=== PATIENT | male | born 1970 | race African-American/Black ===

== ENCOUNTER → 2020-08-05 | Outpatient (CLI) | payer OTHER ==
[~2020-08-05] MED LIST: OXYC1TAB23 PO
== END ==
LOC: M LABSMTC 09:44
PROVIDERS: ATTEND Anesthesiology
DX: Z01.812 Encounter for preprocedural laboratory examination (principal); Z20.828 Contact with and (suspected) exposure to other viral communicable diseases
CPT/HCPCS: C9803; U0003

== ENCOUNTER 2020-08-09 11:23 | Day surgery (SDC) | payer OTHER ==
[~2020-08-09] VITALS: Ht 180.3 cm; Wt 108.0 kg
[~2020-08-09 11:23] MED LIST changes: +ceFAZolin SOD 2 GM in IV 1 EA IV ONE
[2020-08-09] MEDS ORDERED: ROPIvacaine 0.5% 30ML INJECTION (J2795 PER 1MG) ONE (11:24)
[2020-08-09] MEDS ORDERED: dexameTHASONE 10MG/1ML VIAL PRES.FREE (J1100 PER 1MG) ONE (11:24)
[2020-08-09] MEDS ORDERED: LIDOCAINE 1% MDV 20ML VIAL ONE (11:24)
[2020-08-09] MEDS ORDERED: ceFAZolin 2 GM/D5W 50 ML IV BAG (J0690 PER 500MG) As Ordered ONE (11:44)
[2020-08-09] MEDS ORDERED: BUPIVACAINE/EPIN 0.25% 30 ML VIAL As Ordered ONE (12:38)
[2020-08-09] MEDS ORDERED: dexameTHASONE 4 MG/ML 1ML VIAL (J1100 PER 1MG) As Ordered ONE (13:07)
[2020-08-09] MEDS ORDERED: ROCURONIUM BROMIDE 50 MG/5 ML VIAL As Ordered ONE ×2 (13:07→13:29)
[2020-08-09] MEDS ORDERED: ONDANSETRON 4MG/2ML VIAL As Ordered ONE (13:07)
[2020-08-09] MEDS ORDERED: MIDAZOLAM INJ 2MG/2ML VIAL (J2250 PER 1MG) As Ordered ONE (13:07)
[2020-08-09] MEDS ORDERED: LIDOCAINE 2% 100MG/5ML SDV (FOR ANES.) As Ordered ONE ×2 (13:07→13:30)
[2020-08-09] MEDS ORDERED: METOCLOPRAMIDE INJ 10MG/2ML VIAL (J2765 PER 1) As Ordered ONE (13:07)
[2020-08-09] MEDS ORDERED: propofoL 200 MG/20 ML VIAL As Ordered ONE (13:07)
[2020-08-09] MEDS ORDERED: fentaNYL 100 MCG/2 ML INJECTION (J3010) As Ordered ONE ×5 (13:07→15:14)
[2020-08-09] MEDS ORDERED: SUGAMMADEX SODIUM 500 MG/5 ML VIAL (BRIDION) As Ordered ONE (13:30)
[2020-08-09] MEDS ORDERED: PERCOCET 5MG/325MG TAB As Ordered ONE (14:50)
[2020-08-09] MEDS: PERCOCET 5MG/325MG TAB PO PRN ×2 (14:55→15:36)
[2020-08-09] MEDS: fentaNYL 100 MCG/2 ML INJECTION (J3010) IV PRN ×8 (14:55→15:37)
[2020-08-09] MEDS: hydrALAZINE 20MG/ML 1ML VIAL (J0360 PER 20MG) IV SCH ×2 (15:20→15:35)
[2020-08-09] MEDS ORDERED: hydrALAZINE 20MG/ML 1ML VIAL (J0360 PER 20MG) As Ordered ONE (15:22)
[2020-08-09] MEDS ORDERED: METOCLOPRAMIDE INJ 10MG/2ML VIAL (J2765 PER 1) IV PRN (15:30)
[2020-08-09] MEDS ORDERED: ONDANSETRON 4MG/2ML VIAL IV PRN ×2 (15:30→15:45)
[2020-08-09] MEDS ORDERED: LR 1,000 ML IV SCH ×2 (15:30→15:45)
[2020-08-09 15:35] VITALS: BP 184/104
[2020-08-09] MEDS ORDERED: MORPHINE 2 MG/ML 1ML VIAL (J2270) IV PRN (15:45)
[2020-08-09] MEDS ORDERED: ACETAMINOPHEN TAB 650MG DOSE (2X325MG) PO PRN (15:45)
[2020-08-09] MEDS ORDERED: PERCOCET 5MG/325MG TAB PO PRN (15:45)
[2020-08-09] MEDS ORDERED: HYDROMORPHONE HCL 0.5 MG/ 0.5 ML SYRINGE (J1170 PER 1) As Ordered ONE (16:03)
[2020-08-09] MEDS ORDERED: HYDROMORPHONE HCL 0.5 MG/ 0.5 ML SYRINGE (J1170 PER 1) IV ONE (16:45)
[2020-08-09 17:55] VITALS: BP 145/87
--- NOTE | 2020-08-09 20:29 | ECGEPIP ---
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
--- NOTE | 2020-08-19 11:17 | RO ---
DATE OF OPERATION: 08/09/2020 PREOPERATIVE DIAGNOSIS: Right triceps tendon tear. POSTOPERATIVE DIAGNOSIS: Right triceps tendon tear. PLANNED PROCEDURE: Right triceps repair. PROCEDURE PERFORMED: Right triceps repair. SURGEON: Emmanuel Bravo MD LOBBY ATTENDANT: Jill ANESTHESIA: General anesthetic. OPERATIVE PREAMBLE: This 60-year-old man has at least two falls one perhaps two weeks before I saw him in the immediate time preceding when I saw him. He unfortunately had a triceps tear. We talked about the pros and cons, risks and benefits of nonsurgical versus surgical repair. I saw him in preoperative holding and marked the right upper extremity and reiterated the surgical risks and proceeded to surgery. OPERATIVE REPORT: The patient was brought to the operating theater. Administered general anesthetic. He was then administered 2 gm IV Ancef. He was placed in right lateral decubitus, had beanbag positioner. All bony prominences were padded. Axillary roll was used. SCDs were used on the leg. Limb was prepped and draped in usual sterile fashion allowing over 3 minutes for the prep solution to dry and prior to draping. Chlorhexidine-based prep solution was used. Preoperative time out was performed confirming the site, patient and surgery. Tourniquet was inflated to 250 mmHg. Standard longitudinal posterior incision was made curving onto the lateral side of the olecranon tip. Carried the dissection down to subcutaneous tissue and obtained meticulous hemostasis. Identified the proximal ulna. Identified the rupture of the triceps. The deep fibers appeared intact; more superficial fibers were torn and retracted up to 3 cm. I performed extensive mobilization possible as there is quite a bit of scar tissue formed there already. I was able to get the tendon down to bone with full extension. I did running locking Krackow type stitches with #2 FiberWire up and down the tendon medial and lateral borders to create four suture lengths distally. I used rongeur to clear off any remaining tissue from the posterior aspect of the olecranon tip. I used 2.0 mm drill bit and drilled two holes from triceps footprint down distally. I then passed FiberLoop #2 FiberWire suture using Zepeda needle just proximal to the tendon edge. I freshened up the tendon edge as well. I passed all three sutures from each side of each bone, tunneled three sutures out of each bone tunnel. I used crisscross technique to then bring one suture from each tunnel up into the loop of each FiberLoop and delivered them out down distally again creating the box and X technique. I tied one suture from each to each other, [id number] configuration and tied the sutures themselves over bone tunnel. I fixed this in full extension. The tendon came down nicely and was appropriately fixed and good compression in the footprint with this technique. The wound was thoroughly irrigated. Subcutaneous tissue was closed with interrupted 2-0 Vicryl sutures and skin with sydnie. Adaptic, 4 x 8 gauze and ABD dressing was placed. 20 mL of 0.25% Marcaine with Epinephrine was instilled in and around the incision site. 6 inch Joni bandage was wrapped over top of the incision in full extension, the repair being in slight tension due to the chronicity. The patient was awoken up from general anesthetic, transferred off the operating table and taken to postanesthetic unit in stable condition. All sponge, instrument and needle counts were correct. No complications. Estimated blood loss 50 mL. Tourniquet was taken down prior to the end of the case. Plan is for the patient to remain in full extension until follow up due to the tension in the repair. We will go quite slowly in terms of progression his flexion. I will discontinue the sydnie in two weeks time. He will be discharged home according to day surgery criteria. Card Hand was instrumental aiding with retractors due to visualization and position of patient throughout the case. JAGDISH
== END 2020-08-09 17:55 | disposition home or self-care (01) ==
LOC: M SDC 11:23
PROVIDERS: ATTEND Orthopaedic Surgery Sports Medicine
DX: S46.311A Strain of muscle, fascia and tendon of triceps, right arm, initial encounter (principal); X58.XXXA Exposure to other specified factors, initial encounter; Y92.89 Other specified places as the place of occurrence of the external cause; Y93.9 Activity, unspecified; Y99.9 Unspecified external cause status; F17.218 Nicotine dependence, cigarettes, with other nicotine-induced disorders; F12.10 Cannabis abuse, uncomplicated
CPT/HCPCS: 24342; 93005; J0360; J0690; J1100; J1170; J2250; J2405; J2765; J2795; J3010

== ENCOUNTER → 2020-08-16 | Outpatient (REF) ==
[~2020-08-16] MED LIST changes: -ceFAZolin SOD 2 GM in IV 1 EA IV ONE
== END ==
LOC: M LAB 09:46
PROVIDERS: ATTEND Nurse Practitioner Adult Health
DX: Z00.00 Encounter for general adult medical examination without abnormal findings (principal)

== ENCOUNTER → 2024-03-19 | Outpatient (REF) | LOC: M PLAIMG 15:02 | PROVIDERS: ATTEND Internal Medicine | DX: R52 Pain, unspecified (principal) ==